=== PATIENT | female | born 1955 | race Two or more races ===

== ENCOUNTER 2024-10-07 13:31 | Emergency (ER) | payer OTHER ==
[~2024-10-07] VITALS: Ht 157.5 cm; Wt 73.9 kg
[2024-10-07] MEDS ORDERED: LOSARTAN POTASS50 MG PO (14:18)
[2024-10-07] MEDS ORDERED: SYNTHROID100 MCG PO (14:18)
[2024-10-07] MEDS ORDERED: DEXAMETHASONE SODIUM PHOSPHATE 4 MG/ML VIAL IM STA (16:44)
[2024-10-07] MEDS ORDERED: ORPHENADRINE CITRATE 30 MG/ML AMPUL IM STA (16:45)
[2024-10-07] MEDS ORDERED: KETOROLAC TROMETHAMINE 60 MG VIAL IM STA (16:46)
[2024-10-07] MEDS ORDERED: ORPHENADRINE CITRATE 30 MG/ML AMPUL ONE (17:07)
[2024-10-07] MEDS ORDERED: KETOROLAC TROMETHAMINE 60 MG VIAL IM ONE (17:07)
[2024-10-07] MEDS ORDERED: DEXAMETHASONE SODIUM PHOSPHATE 4 MG/ML VIAL ONE (17:08)
[2024-10-07] MEDS ORDERED: TYLENOL ARTHRI650 MG PO (17:58)
[2024-10-07] MEDS ORDERED: NORFLEX100MG PO (18:00)
== END 2024-10-07 18:37 | disposition home or self-care (01) ==
LOC: ER 13:33
DX: M19.90 Unspecified osteoarthritis, unspecified site (principal); Z88.0 Allergy status to penicillin; Z88.6 Allergy status to analgesic agent
CPT/HCPCS: 96372; 99282; J1100; J1885; J2360

== ENCOUNTER 2024-12-14 14:49 | Emergency (ER) | payer OTHER ==
[~2024-12-14] VITALS: Ht 157.5 cm; Wt 68.0 kg
[~2024-12-14 14:49] MED LIST: LOSARTAN POTASS50 MG PO; NORFLEX100MG PO; SYNTHROID100 MCG PO; TYLENOL ARTHRI650 MG PO
[2024-12-14] MEDS ORDERED: ONDANSETRON HCL 2 MG/ML VIAL IV ONE (16:15)
[2024-12-14] MEDS ORDERED: FAMOtidine 10 MG/ML (4ML VIAL) IV PUSH ONE (16:15)
[2024-12-14] MEDS ORDERED: ONDANSETRON HCL 2 MG/ML VIAL ONE (16:48)
[2024-12-14] MEDS ORDERED: FAMOTIDINE/PF 20 MG/2 ML VIAL ONE (16:48)
[2024-12-14 17:03] LABS: HEMOGLOBIN 12.7 g/dL (12.0-15.00); MEAN CELL VOLUME 88.5 fL (80.00-100.00); MEAN CORPUSCULAR HEMOGLOBIN 29.6 pg (27.00-32.0); MEAN CORPUSCULAR HGB CONC 33.5 g/dl (32.0-36.0); PLATELET COUNT 217 K/uL (150-450); RED BLOOD COUNT 4.29 M/uL (4.00-6.00); RED CELL DISTRIBUTION WIDTH 17.3 % (11.5-14.5)
[2024-12-14 17:55] LABS: ALBUMIN 3.5 gm/dL (3.4-5.0); BILIRUBIN TOTAL 0.67 mg/dL (0.3-1.2); CALCIUM 8.1 mg/dL (8.5-10.1); CREATININE SERUM 0.49 mg/dL (0.55-1.02); GFR 125.97; GLOBULINA 4.2 G/DL (2.4-3.5); POTASSIUM 3.5 mEq/L (3.5-5.1); TOTAL PROTEIN 7.7 gm/dL (6.4-8.2)
[2024-12-14] MEDS ORDERED: ZOFRAN8 MG PO (18:47)
[2024-12-14] MEDS ORDERED: PROBIOTIC1 EAC2 PO (18:47)
[2024-12-14] MEDS ORDERED: PEPCID AC20 MG PO (18:47)
== END 2024-12-14 19:12 | disposition home or self-care (01) ==
LOC: ER 14:52
PROVIDERS: General Practice
DX: K52.89 Other specified noninfective gastroenteritis and colitis (principal); Z20.822 Contact with and (suspected) exposure to COVID-19; I10 Essential (primary) hypertension; E03.9 Hypothyroidism, unspecified; Z88.0 Allergy status to penicillin; Z88.8 Allergy status to other drugs, medicaments and biological substances

== ENCOUNTER 2025-03-23 11:45 | Emergency (ER) | payer OTHER ==
[~2025-03-23] VITALS: Ht 157.5 cm; Wt 71.7 kg
[~2025-03-23 11:45] MED LIST changes: +PEPCID AC20 MG PO; +PROBIOTIC1 EAC2 PO; +ZOFRAN8 MG PO
[2025-03-23] MEDS ORDERED: GUAIFENESIN 200 MG/10 ML BLIST.PACK PO ONE (12:30)
[2025-03-23 12:44] LABS: BASO % 0.5 % (0.1-1.2); EOS # 0.28 (0.04-0.54); EOS % 2.8 % (0.7-7.0); HEMATOCRIT 36.4 % (34.1-44.9); HEMOGLOBIN 12.2 g/dL (11.2-15.7); LYMPH # 2.24 (1.18-3.74); LYMPH % 22.4 % (19.3-53.1); MEAN CORPUSCULAR HEMOGLOBIN 30.3 pg (25.6-32.2); MONO # 0.92 (0.24-0.82); MONO % 9.2 % (4.7-12.5); NEUT # 6.46 (1.56-6.13); NEUT % 64.6 % (34.0-71.1); PLATELET COUNT 281 K/uL (163-369); RED BLOOD COUNT 4.03 M/uL (3.93-5.22); RED CELL DISTRIBUTION WIDTH 14.7 % (11.6-14.4)
== END 2025-03-23 13:19 | disposition home or self-care (01) ==
LOC: ER 11:45
PROVIDERS: General Practice
DX: R05.3 Chronic cough (principal); R05.9 Cough, unspecified; I10 Essential (primary) hypertension; E03.8 Other specified hypothyroidism; Z88.0 Allergy status to penicillin; Z88.5 Allergy status to narcotic agent

== ENCOUNTER → 2025-08-26 | Emergency (ER) | payer OTHER ==
[~2025-08-26] VITALS: Ht 157.5 cm; Wt 72.6 kg
[~2025-08-26] MED LIST changes: +ACETAMINOPHEN 500 MG GEL..CAP PO ONE; +BENZONATATE 100 MG CAPSULE PO ONE; +GUAIFENESIN 200 MG/10 ML BLIST.PACK PO ONE; +MEDROL4 MG PO; +METHOTREXATE2.5 MG PO
[2025-08-26 08:50] VITALS: BP 148/72; O2SAT 96
[2025-08-26 10:38] LABS: BASO % 0.3 % (0.1-1.2); EOS # 0.22 (0.04-0.54); EOS % 2.9 % (0.7-7.0); LYMPH # 1.65 (1.18-3.74); LYMPH % 21.9 % (19.3-53.1); MEAN PLATELET VOLUME 10.20 fl (9.4-12.4); MONO # 0.63 (0.24-0.82); MONO % 8.4 % (4.7-12.5); NEUT # 5.00 (1.56-6.13); NEUT % 66.4 % (34.0-71.1); RED CELL DISTRIBUTION WIDTH 14.7 % (11.6-14.4)
[2025-08-26 11:02] LABS: COVID-19 AG NEGATIVE (NEGATIVE)
[2025-08-26 11:06] LABS: BUN CREA RATIO 14.0 (7.0-25.0); CREATININE SERUM 0.44 mg/dL (0.55-1.02); GFR 142.2; GLUCOSE FASTING 92.0 mg/dL (65-100); OSMOLALITY SERUM 282.0 MOSM/KG (275-295)
== END | disposition home or self-care (01) ==
LOC: ER 08:05
PROVIDERS: General Practice
DX: J06.9 Acute upper respiratory infection, unspecified (principal); Z20.822 Contact with and (suspected) exposure to COVID-19; I10 Essential (primary) hypertension; Z88.0 Allergy status to penicillin; Z88.8 Allergy status to other drugs, medicaments and biological substances